=== PATIENT | female | born 1975 | race Caucasian/White ===

== ENCOUNTER 2017-03-04 20:22 | Emergency (ER) | payer SELFPAY ==
--- NOTE | 2017-03-07 13:02 | ER ---
ADMIT: 03/04/2017 RM/LOC: ER [facility] MR#: [id number] [place], [place] [id number] TURNER MARCIN M [address] [place] [address] Emergency Room Report SEX: F AGE: 41 : 1975 DATE: 03/04/2017 CHIEF COMPLAINT: Medication refill. HISTORY OF PRESENT ILLNESS: This is a 41-year-old female, who presents to the ER stating she needs to have her medications refilled. The patient states she recently moved from [place] back to [place] secondary to losing her home in [place]. She states she has family and grew up in this part [place] the [facility], hence why she returned. She states she has been trying to establish care, but recently was denied her Medicaid application. She comes in today saying she has increased pain as she has not been able to fill her medication scripts. States she is typically on Mobic, gabapentin, hydrocodone, and a steroid inhaler secondary to her diagnoses of fibromyalgia, osteoarthritis, degenerative disk disease, sciatica, and cervical lumbar radiculopathy. The patient is otherwise well. Denies any fever, sore throat, chest pain, shortness of breath, or abdominal pain. She does admit to significant back, neck, and joint pain, headache, and some anxiety. PAST MEDICAL HISTORY: As previously stated, includes fibromyalgia, osteoarthritis, DJD, sciatica, and cervical lumbar radiculopathy. ALLERGIES: TO CIPRO, NICOTINE, AND LATEX. COURSE IN THE EMERGENCY ROOM: The patient was seen and examined. She is in no acute distress. She is alert. Her pupils are somewhat dilated. She is mildly tachycardic. Heart is regular. Chest, respirations are nonlabored. No evidence of any wheezes or rhonchi. Abdomen is nontender. She is oriented. She has normal motor and sensation exam. IMPRESSION: 1. Chronic pain. 2. Fibromyalgia. DISPOSITION: I did review this patient's medical records down that she has not been to our ER for this type of complaint previously. She did have documentation today showing her denied Medicaid application as well as medical ADMIT: 03/04/2017 RM/LOC: ER [facility] MR#: [id number] [place], [place] [address] MARCIN TURNER [address] [place] [address] Emergency Room Report SEX: F AGE: 41 : 1975 documents from her previous provider in [place] with the medication she was on her diagnoses. I told her I would refill her hydrocodone, gabapentin, and Mobic for one week while she establish her care with a provider here in [facility]. I have provided her with a script for Elizabeth 5/325 one to two tablets p.o. every 4 to 6 hours for pain #20, Mobic 7.5 mg one tab p.o. daily #7, gabapentin 600 mg one tab four times daily #28. I did give her Dr. Mascorro's name as a potential family practice provider with which to establish care. She agreed with this plan moving forward stated she would be in touch with a provider sometime in next week. She was provided with two Elizabeth in the department prior to dismissal. She had a friend at bedside, who could drive her to where she is currently staying. Questions were sought and answered to the best of my ability to the patient's satisfaction. She was discharged in stable condition. GUEVARA Croft / Mario Gan MD / anthony JOB #: [id number] CC: Mario Gan MD, Attending Physician
== END 2017-03-04 23:45 | disposition home or self-care (01) ==
LOC: ER 20:22
DX: Z76.0 Encounter for issue of repeat prescription (principal); G89.29 Other chronic pain; M79.7 Fibromyalgia; Z91.040 Latex allergy status

== ENCOUNTER 2017-04-14 21:27 | Emergency (ER) | payer SELFPAY ==
--- NOTE | 2017-04-17 01:37 | ER ---
ADMIT: 04/14/2017 RM/LOC: [facility] MR#: [id number] [address] [address] MARCIN TURNER [address] [place] [address] Emergency Room Report SEX: F AGE: 42 : 1975 DATE: 04/14/2017 HISTORY OF PRESENT ILLNESS: A 42-year-old female, presents to the emergency room complaining of back pain that goes into her groin, continues in the ED. She was in the emergency room about a week ago, was given Evant for pain control. PAST MEDICAL HISTORY: She has had degenerative disc disease with fibromyalgia and hypothyroidism. PAST SURGICAL HISTORY: Oophorectomy. ALLERGIES: SHE IS ALLERGIC TO CEPHALEXIN. MEDICATIONS: See T-sheet for list. PHYSICAL EXAMINATION: VITAL SIGNS: Blood pressure 139/100, heart rate 93, respirations 20, temp 98.7, and O2 saturation 96%. GENERAL: Alert and oriented, although mildly anxious. NECK: Supple. BACK: Muscle spasms right lower back wrapping around the thigh. NEUROLOGIC: She is intact. SKIN: Good color and turgor. She is obese female. EXTREMITIES: Nontender. No edema noted. LABORATORY DATA: UA done, she has urobilinogen 2.0, hyaline casts 5, protein 1+. CLINICAL IMPRESSION: Chronic back pain. Encouraged to follow up with the primary provider or Internal Medicine given city call Dr. Mascorro to get ADMIT: 04/14/2017 RM/LOC: [facility] MR#: [id number] [address] [address] JOHNNY MARCIN M [address] [place] [address] Emergency Room Report SEX: F AGE: 42 : 1975 established and get her chronic back pain under control and follow it up. Apparently, she just moved recently from a state and is having to get a physician to monitor her chronic medications. Given a shot of Nubain and Norflex. CLINICAL IMPRESSION: 1. Chronic back pain. 2. Sciatica history. 3. Proteinuria. Encouraged strongly to get checked with Dr. Mascorro. The patient verbalized understanding. Discharged. GUEVARA Garibay / Romeo Red MD / mariaal JOB #: [id number] CC: Romeo Red MD, Attending Physician Dana Mascorro MD, Family Physician
== END 2017-04-15 00:12 | disposition home or self-care (01) ==
LOC: ER 21:27
DX: M54.5 Low back pain (principal); G89.29 Other chronic pain; R80.9 Proteinuria, unspecified; E03.9 Hypothyroidism, unspecified; Z88.1 Allergy status to other antibiotic agents